=== PATIENT | male | born 1945 | race Caucasian/White ===

== ENCOUNTER 2019-03-31 19:14 | Inpatient (IN) ==
[2019-03-31] MEDS ORDERED: SODIUM CHLORIDE 0.9% 1000ML 1,000 ML IV SCH (19:45)
[2019-03-31 19:49] LABS: Basophils # (auto) 0.02 K/uL (0-0.2); Basophils % (auto) 0.3 %; Eosinophils % (auto) 5.2 %; Hematocrit (blood only) 39.8 % (42-52); Hemoglobin 13.6 g/dL (14.0-18.0); Immature Granulocytes # (auto) 0.01 K/uL (0.00-0.02); Immature Granulocytes % (auto) 0.1 %; Lymphocytes # (auto) 2.51 K/uL (1.2-3.4); Lymphocytes % (auto) 32.6 %; Mean Corpuscular Hemoglobin 30.4 pg (25-34); Mean Corpuscular Hgb Conc 34.2 g/dL (32-36); Mean Platelet Volume 9.9 fL (7.4-10.4); Monocytes # (auto) 0.82 K/uL (0.11-0.59); Monocytes % (auto) 10.6 %; Neutrophils # (auto) 3.95 K/uL (1.4-6.5); Neutrophils % (auto) 51.2 %; Platelet Count 201 K/uL (130-400); RDW Coefficient of Variation 12.7 % (11.5-14.5); RDW Standard Deviation 40.2 fL (36.4-46.3); Red Blood Count 4.47 M/uL (4.7-6.1); White Blood Count 7.71 K/uL (4.8-10.8)
[2019-03-31 20:01] LABS: Partial Thromboplastin Ratio 0.9; Partial Thromboplastin Time 24.7 Seconds (21.0-31.0); Prothrombin Time 10.7 Seconds (9.0-12.0)
--- NOTE | 2019-03-31 20:04 | XRay Report ---
SINGLE VIEW CHEST CLINICAL HISTORY: Generalized weakness. FINDINGS: An AP, portable, upright chest radiograph is correlated with chest CT dated 05/17/2009. The examination is degraded by portable technique and patient rotation. The heart is enlarged. The pulmo nary vasculature is noncongested. No airspace consolidation or large pleural effusion is identified. Scarring/atelectasis are noted at the lung bases. No pneumothorax is seen. The skeletal structures ar e osteopenic. The bony thorax is grossly intact. Degenerative change is noted throughout the thoracic spine. IMPRESSION: Mild cardiac enlargement with no acute cardiopulmonary abnormality. Electronically signed by: Davidson Fuentes M.D. 03/31/2019 8:02 PM
[2019-03-31 20:08] LABS: Alanine Aminotransferase 21 U/L (12-78); Albumin Level 3.3 gm/dl (3.4-5.0); Aspartate Aminotransferase 17 U/L (15-37); BUN Creatinine Ratio 20.5 (10-20); Blood Urea Nitrogen 22 mg/dl (7-18); Calcium 8.8 mg/dl (8.5-10.1); Carbon Dioxide 30 mmol/L (21-32); Chloride 108 mmol/L (98-107); Creatinine Clr Calc Pharmacy 65.9 ml/min; Est GFR (Non-African American) 67.3; Glucose 125 mg/dl (70-99); Magnesium 1.5 mg/dl (1.8-2.4); Potassium 3.7 mmol/L (3.5-5.1); Sodium 145 mmol/L (136-145)
[2019-03-31 20:13] LABS: Albumin Globulin Ratio 0.8 (0.9-2); Alkaline Phosphatase 91 U/L (45-117); Bilirubin,Total 0.3 mg/dl (0.2-1); Total Protein 7.3 gm/dl (6.4-8.2); Troponin I < 0.015 ng/ml (0-0.045)
--- NOTE | 2019-03-31 20:20 | CT Scan Report ---
CT SCAN OF THE BRAIN WITHOUT IV CONTRAST CLINICAL HISTORY: Strokelike symptoms. COMPARISON STUDY: No priors. TECHNIQUE: Unenhanced axial CT scan of the brain is performed from the vertex to the skull base. A do se lowering technique was utilized adhering to the principles of ALARA. CT DOSE: 729.78 mGycm FINDINGS: Brain parenchyma: There are age-related involutional changes noting mild subcortical and periventric ular microangiopathic change. There is no hemorrhage, mass effect, or evidence of acute territorial i schemia by CT criteria. An age indeterminant lacunar infarct is noted in the right caudate head. [place] -white matter differentiation is preserved. No extra-axial fluid collection is seen. Ventricles, sulci, cisterns: Prominent secondary to involutional change. Intracranial vasculature: There is atherosclerotic calcification of the cavernous carotid and vertebr al arteries. Calvarium: Unremarkable. Sinuses and mastoids: A small retention cyst is noted in the right sphenoid sinus. The remaining visu alized paranasal sinuses are clear. The mastoid air cells are well pneumatized. Orbits: The bony orbits are grossly intact. IMPRESSION: There is no hemorrhage, mass effect, or evidence of acute territorial ischemia by CT concepcion jones. Electronically signed by: Davidson Fuentes M.D. 03/31/2019 8:19 PM
[2019-03-31] MEDS: MAGNESIUM SULFATE / D5W 1 GM/100 ML BAG IV SCH ×2 (20:44→21:56)
--- NOTE | 2019-03-31 21:09 | Emergency Department Note ---
Entered by Emilia Herman acting as a scribe for Pancho Wilkerson DO History of Present Illness General Chief complaint: Leg Injury/Pain Stated complaint: R LEG SORE,DRAGGING Source: patient and family Limitations: no limitations History of Present Illness Provider complaint: weakness Onset (ago): hour(s) (6.5) Location: head, foot and right Radiation: non-radiation Severity: moderate Quality: + other (heaviness) Relieved By: + none Exacerbated By: + none Associated symptoms: + weakness and + other (+light headed.); no chest pain, no nausea/vomiting and no shortness of breath Treatments prior to arrival: none The patient is a 74 year old male that presents to the Emergency Department with complaints of that began. Per nursing, the patient began feeling dizzy 6 and a half hours ago. The patient was at a soccer game when his leg began dragging, he states his leg felt heavier than the other. Per the patient, he then started feeling light headed. He denies trouble with his speech or trouble with the other leg. He denies any nausea, vomiting, chest pain, or difficulty breathing. Home Medications Home Medications Medication Instructions Recorded Confirmed Type atorvastatin 20 mg PO DAILY 03/31/19 03/31/19 History bupropion HCl 300 mg PO DAILY 03/31/19 03/31/19 History esomeprazole magnesium [Nexium] 40 mg PO DAILY 03/31/19 03/31/19 History lisinopril 40 mg PO DAILY 03/31/19 03/31/19 History aspirin [Ecotrin Low Strength] 81 mg PO QAM 81 Days #81 tab 04/01/19 Rx Allergies Allergy/AdvReac Type Severity Reaction Status Date / Time No Known Allergies Allergy Unverified 03/31/19 21:08 Past Med/Surg History Medical History No pertinent past medical history No pertinent family history Family History Other No pertinent family history Social History Preferred Language: Yakut Communication Ability: Effective Legal Editor Required: No Beliefs That Will Affect Care: None Current Living Situation: Spouse Other Information That Helps Us Care for You: No Feels Safe at Home: Yes Smoking Status: Unknown if ever smoked Hx Alcohol Use: No Hx Substance Use: No Review of Systems See HPI for pertinent positives & negatives. and A total of 10 systems reviewed and were otherwise negative Physical Exam Vital Signs Vital Signs - 24 hr 03/31/19 19:17 03/31/19 20:25 03/31/19 20:27 Temperature 36.7 C Temperature Source Oral Sepsis Recent Fever Within 48 Hours No Sepsis Action Taken by Nursing No Action Required Pulse Rate 87 76 70 Pulse Rate [Apical] 70 Pulse Rate from SpO2 Sensor 76 Pulse Rhythm Regular Pulse Rhythm [Apical] Regular Pulse Strength [Apical] Normal Respiratory Rate 18 18 18 Respiratory Effort / Characteristics Non-Labored Spontaneous Non-Labored Respiratory Depth Normal Normal Respiratory Pattern Regular Blood Pressure 176/96 H 179/91 H Blood Pressure [Left Arm] 179/91 H Blood Pressure Mean 122 120 Blood Pressure Mean [Left Arm] 120 Blood Pressure Position [Left Arm] Lying Pulse Oximetry 96 94 94 Oxygen Delivery Method Room Air Room Air 03/31/19 20:31 03/31/19 21:01 03/31/19 21:31 Temperature Temperature Source Sepsis Recent Fever Within 48 Hours Sepsis Action Taken by Nursing Pulse Rate 75 73 68 Pulse Rate [Apical] Pulse Rate from SpO2 Sensor 75 74 68 Pulse Rhythm Pulse Rhythm [Apical] Pulse Strength [Apical] Respiratory Rate 18 18 18 Respiratory Effort / Characteristics Respiratory Depth Respiratory Pattern Blood Pressure 169/97 H 164/94 H 168/91 H Blood Pressure [Left Arm] Blood Pressure Mean 121 117 116 Blood Pressure Mean [Left Arm] Blood Pressure Position [Left Arm] Pulse Oximetry 95 97 94 Oxygen Delivery Method 03/31/19 22:01 Temperature Temperature Source Sepsis Recent Fever Within 48 Hours Sepsis Action Taken by Nursing Pulse Rate 74 Pulse Rate [Apical] Pulse Rate from SpO2 Sensor 70 Pulse Rhythm Pulse Rhythm [Apical] Pulse Strength [Apical] Respiratory Rate 18 Respiratory Effort / Characteristics Respiratory Depth Respiratory Pattern Blood Pressure 168/90 H Blood Pressure [Left Arm] Blood Pressure Mean 116 Blood Pressure Mean [Left Arm] Blood Pressure Position [Left Arm] Pulse Oximetry 94 Oxygen Delivery Method GENERAL: Patient is awake, alert, and in no acute distress.Patient is resting comfortably and showing no signs of anxiety EYES: The conjunctivae are clear. The pupils are round and reactive. EARS, NOSE, MOUTH AND THROAT: The nose is without any evidence of any deformity. Mucous membranes are moist.Tongue is midline NECK: The neck is nontender and supple. RESPIRATORY: Normal respiratory effort is noted. There is no evidence of wheezing rhonchi or rales to auscultation. CARDIOVASCULAR: Regular rate and rhythm noted. Systolic murmur suggested. GASTROINTESTINAL: The abdomen is soft. Bowel sounds are present in all quadrants. Abdomen is nontender. MUSCULOSKELETAL/EXTREMITIES: There is no evidence of gross deformity. Full range of motion is noted in the hips and shoulders. SKIN: There is no obvious evidence of any rash. There are no petechiae, pallor or cyanosis noted. NEUROLOGIC: Patient is awake alert and oriented x3. Patellar tendon reflexes were 2+ bilaterally. Gait was unsteady and patient is unable to completely walk with the right leg. He appears to drop the right leg and drag it. He seems to be unsteady and falls of the right. Course 1927: Medical records reviewed. The patient was seen in room A3, a physical examination was performed. 2032: I spoke with the nursing staff and asked them to have the patient walk. 2100: I checked on the patient and spoke with him about having him evaluated further. 2120: I spoke to Dr. Dennis, [facility] Hospitalist, about the patient's case and he agreed to accept for further evaluation. 0: The patient was admitted. Administered Medications Discontinued Medications Aspirin (Ecotrin Ectab) 81 mg PO QAM [facility] Stop: 05/01/19 08:59 Last Admin: 04/01/19 07:53 Dose: 81 mg Documented by: [id number] Atorvastatin Calcium (Lipitor) 20 mg PO DAILY ROBERTO Stop: 05/01/19 08:59 Last Admin: 04/01/19 07:53 Dose: 20 mg Documented by: [id number] Bupropion HCl (Wellbutrin-Xl) 300 mg PO DAILY ROBERTO Stop: 05/01/19 08:59 Last Admin: 04/01/19 07:53 Dose: 300 mg Documented by: [id number] Gadobutrol (Gadavist 65ml) 9 ml IV ONCE PRN PRN Reason: Interaction Checking Stop: 04/05/19 02:15 Last Admin: 04/01/19 02:17 Dose: 9 ml Documented by: [id number] Sodium Chloride (Nss 1000ml) 1,000 mls @ 50 mls/hr IV .Q20H ROBERTO Stop: 04/30/19 19:44 Last Infusion: 04/01/19 00:25 Dose: 0 mls/hr Documented by: [id number] Admin: 03/31/19 20:21 Dose: 50 mls/hr Documented by: [id number] Magnesium Sulfate/Dextrose (Magnesium Sulfate / D5w) 1 gm in 100 mls @ 100 mls/hr IV Q1H ROBERTO Stop: 03/31/19 22:29 Last Infusion: 04/01/19 00:20 Dose: 0 mls/hr Documented by: [id number] Admin: 03/31/19 21:56 Dose: 100 mls/hr Documented by: [id number] Infusion: 03/31/19 21:56 Dose: 0 mls/hr Documented by: [id number] Admin: 03/31/19 20:44 Dose: 100 mls/hr Documented by: [id number] Lisinopril (Zestril) 40 mg PO DAILY ROBERTO Stop: 05/01/19 08:59 Last Admin: 04/01/19 07:53 Dose: 40 mg Documented by: [id number] Medical Decision Making Differential Diagnosis Differential diagnosis: Etiologies such as metabolic, infection, hypo/hyperglycemia, electrolyte abnormalities, cardiac sources, intracerebral event, toxicologic, neurologic, as well as others were entertained. Medical Records Attestation: I reviewed the patient's medical records. Home Medications Current Medication List: was personally reviewed by me Laboratory Data Attestation: I reviewed the patient's lab results. Result diagrams: 04/01/19 05:44 04/01/19 05:44 Lab Results 03/31/19 03/31/19 03/31/19 Range/Units 19:39 19:39 19:39 WBC 7.71 (4.8-10.8) K/uL RBC 4.47 L (4.7-6.1) M/uL Hgb 13.6 L (14.0-18.0) g/dL Hct 39.8 L (42-52) % MCV 89.0 (80-100) fL MCH 30.4 (25-34) pg MCHC 34.2 (32-36) g/dL RDW Std Deviation 40.2 (36.4-46.3) fL RDW Coeff of Angela 12.7 (11.5-14.5) % Plt Count 201 (130-400) K/uL MPV 9.9 (7.4-10.4) fL Immature Gran % (Auto) 0.1 % Neut % (Auto) 51.2 % Lymph % (Auto) 32.6 % [place] % (Auto) 10.6 % Eos % (Auto) 5.2 % Baso % (Auto) 0.3 % Immature Gran # (Auto) 0.01 (0.00-0.02) K/uL Neut # (Auto) 3.95 (1.4-6.5) K/uL Lymph # (Auto) 2.51 (1.2-3.4) K/uL [place] # (Auto) 0.82 H (0.11-0.59) K/uL Eos # (Auto) 0.40 (0-0.5) K/uL Baso # (Auto) 0.02 (0-0.2) K/uL PT 10.7 (9.0-12.0) Seconds INR 1.0 (0.9-1.1) APTT 24.7 (21.0-31.0) Seconds PTT Ratio 0.9 Sodium 145 (136-145) mmol/L Potassium 3.7 (3.5-5.1) mmol/L Chloride 108 H (98-107) mmol/L Carbon Dioxide 30 (21-32) mmol/L Anion Gap 7.0 (3-11) BUN 22 H (7-18) mg/dl Creatinine 1.08 (0.6-1.4) mg/dl Est Cr Clr Drug Dosing 65.9 ml/min Est GFR ( Amer) 78.0 Est GFR (Non-Af Amer) 67.3 BUN/Creatinine Ratio 20.5 H (10-20) Glucose 125 H (70-99) mg/dl Calcium 8.8 (8.5-10.1) mg/dl Magnesium 1.5 L (1.8-2.4) mg/dl Total Bilirubin 0.3 (0.2-1) mg/dl AST 17 (15-37) U/L ALT 21 (12-78) U/L Alkaline Phosphatase 91 (45-117) U/L Troponin I < 0.015 (0-0.045) ng/ml Total Protein 7.3 (6.4-8.2) gm/dl Albumin 3.3 L (3.4-5.0) gm/dl Globulin 4.0 (2.5-4.0) gm/dl Albumin/Globulin Ratio 0.8 L (0.9-2) Imaging Data Radiologist's Impression: Radiology results as stated below per my review and the radiologist's interpretation: CT SCAN OF THE BRAIN WITHOUT IV CONTRAST CLINICAL HISTORY: Strokelike symptoms. COMPARISON STUDY: No priors. TECHNIQUE: Unenhanced axial CT scan of the brain is performed from the vertex to the skull base. A dose lowering technique was utilized adhering to the principles of ALARA. CT DOSE: 729.78 mGycm FINDINGS: Brain parenchyma: There are age-related involutional changes noting mild subc ortical and periventricular microangiopathic change. There is no hemorrhage, mass effect, or evidence of acute territorial ischemia by CT criteria. An age indeterminant lacunar infarct is noted in the right caudate head. [place]-white matter differentiation is preserved. No extra-axial fluid collection is seen. Ventricles, sulci, cisterns: Prominent secondary to involutional change. Intracranial vasculature: There is atherosclerotic calcification of the cavernous carotid and vertebral arteries. Calvarium: Unremarkable. Sinuses and mastoids: A small retention cyst is noted in the right sphenoid sinus. The remaining visualized paranasal sinuses are clear. The mastoid air cells are well pneumatized. Orbits: The bony orbits are grossly intact. IMPRESSION: There is no hemorrhage, mass effect, or evidence of acute territorial ischemia by CT criteria. Electronically signed by: Davidson Fuentes M.D. 03/31/2019 8:19 PM SINGLE VIEW CHEST CLINICAL HISTORY: Generalized weakness. FINDINGS: An AP, portable, upright chest radiograph is correlated with chest CT dated 05/17/2009. The examination is degraded by portable technique and patient rotation. The heart is enlarged. The pulmonary vasculature is noncongested. No airspace consolidation or large pleural effusion is identified. Scarring/atelectasis are noted at the lung bases. No pneumothorax is seen. The skeletal structures are osteopenic. The bony thorax is grossly intact. Degenerative change is noted throughout the thoracic spine. IMPRESSION: Mild cardiac enlargement with no acute cardiopulmonary abnormality. Electronically signed by: Davidson Fuentes M.D. 03/31/2019 8:02 PM ECG Data Attestation: I personally reviewed and interpreted this ECG as follows: Indication: weakness and other Rate (beats per minute): 142 Rhythm: sinus tachycardia Findings: + other (no acute ST segments); no ectopy Comparison ECG Date: from (01/05/15) Change: no significant change Blood Pressure Blood Pressure Findings: Elevated blood pressure Blood Pressure Disposition: further management by hospitalist PRIMITIVO Sanchez The patient is a 74-year-old male who presented to the emergency department for an evaluation of weakness in his right leg. The patient did not have any specific focal neurologic deficit when he tried to walk he would have falling to the right as well as some degree of dragging of his right leg. I discussed patient's laboratory and radiographic studies with him. Given his findings I also discussed his case with the on-call [facility] hospitalist. They have agreed to evaluate the patient in the emergency department for further ma nagement disposition. The patient has no other reason for this finding on physical exam. He was not made a stroke alert because the onset of symptoms making the patient outside of the window for TPA. Impression & Plan Weakness of right lower extremity, Acute focal neurological deficit Discharge Plan Visit Data *Final* Discharge Date/Time: 04/01/19 00:10 Chief Complaint: Leg Injury/Pain Stated Complaint: R LEG SORE,DRAGGING ED Provider: Pancho Wilkerson Discharge Problem: Weakness of right lower extremity, Acute focal neurological deficit Patient Disposition: Admitted As Inpatient Discharge Instructions Interventions: ED Discharge Assessment Last Done: 04/01/19 00:10 The rose's documentation has been prepared under my direction and personally reviewed by me in its entirety. I confirm that the note above accurately reflects all work, treatment, procedures, and medical decision making performed by me.
[2019-04-01] MEDS ORDERED: NITROGLYCERIN SL 0.4 MG/TAB TAB SL PRN (00:37)
[2019-04-01] MEDS ORDERED: PHARMACIST DISCHARGE MED REC CONSULT PRN (00:37)
[2019-04-01] MEDS ORDERED: POLYETHYLENE (MIRALAX) 17 GM PACK PO PRN (00:37)
[2019-04-01] MEDS ORDERED: ONDANSETRON INJ 2 MG/ML 2 ML VIAL IV PRN (00:37)
[2019-04-01] MEDS ORDERED: ACETAMINOPHEN 325 MG TAB PO PRN (00:37)
--- NOTE | 2019-04-01 00:41 | History and Physical Report ---
DATE OF ADMISSION: 03/31/2019 CHIEF COMPLAINT: Dragging his right leg. HISTORY OF PRESENT ILLNESS: This is a 74-year-old male with past medical history significant for hyperlipidemia, history of gout, hypertension, GERD, Da Silva's esophagus, depression, presents with some difficulty ambulation since 1:00 p.m. today. He was at soccer match when he noticed that he had some difficulty ambulation. The patient dragged his right leg. He came home with and it was still continuing. He can move his legs. There is no lack of sensation, but when he is walking, he has to drag his right leg that is the reason he came to the ER. His initial CAT scan was unremarkable. Currently, resting comfortable and hemodynamically stable. Denies any headaches, no blurred vision, no difficulty swallowing. Speech is clear. No sore throat, no cough, no fever, no chills, no shortness of breath, no chest pain, no nausea, no vomiting, no abdominal pain. Normal bowel and bladder movements. No hematuria, no dysuria, no black stools or hematochezia. ALLERGIES: No known drug allergies. PAST MEDICAL HISTORY: As mentioned above. PAST SURGICAL HISTORY: Colonoscopy, EGDs, larynx surgery. MEDICATIONS: The patient is on atorvastatin 20 mg p.o. daily, bupropion 300 mg p.o. daily, Nexium 40 mg p.o. daily, lisinopril 40 mg p.o. daily. FAMILY HISTORY: Significant for, mother had cervical cancer. Brother had depression. Brother had cardiac stents. Sister has Da Silva's esophagus. Father has aortic aneurysm. SOCIAL HISTORY: , lives with his . Former smoker, quit in 1970. Smoked 1 pack a day for 5 years. Alcohol, occasional. No drug use. REVIEW OF SYMPTOMS: As per HPI. Rest of review of systems negative. PHYSICAL EXAMINATION: GENERAL: The patient is of moderate build, not in acute distress. VITAL SIGNS: Temperature 36.7, pulse 74, respiratory rate 18, blood pressure 168/90, oxygen 94% room air. HEENT: No pallor, no icterus. Pupils equal, round, reactive to light. NECK: No JVD, no neck masses, no carotid bruits. CARDIOVASCULAR: S1, S2 heard, regular rate and rhythm. Some mild murmur heard in mitral area. ABDOMEN: Soft, bowel sounds present, nontender. No distention. CENTRAL NERVOUS SYSTEM: Cranial nerves II-XII grossly intact. Power 5/5 in all extremities. Sensation is intact. Position sense intact. Coordination of movement normal. Oubarh-sr-uzim test normal. No pronator drift. Iobe-bx-sptb test normal. Babinski negative. Gait is somewhat slow and questionable, mild dragging of the right leg. EXTREMITIES: No edema, no erythema. LABORATORY DATA: WBC 7.7, hemoglobin 13.6, hematocrit 39.8, platelets 201. PT 10.7, INR 1, APTT 24.7. Sodium 145, potassium 3.7, chloride 108, bicarbonate 30, BUN 22, creatinine 1.08, serum glucose 125, calcium 8.8, magnesium 1.5, total bilirubin 0.3, AST 17, ALT 21, alkaline phosphatase 19, troponin I less than 0.015. CT of the head: There is no hemorrhage, mass effect, or evidence of acute territorial ischemia by CT criteria. Chest x-ray: Mild cardiac enlargement with no acute cardiopulmonary abnormalities. EKG: Normal sinus rhythm, rate of 81, no significant change found. ASSESSMENT AND PLAN: This is a 74-year-old male who presents with questionable dragging of right leg and ambulatory dysfunction. 1. Questionable stroke-like symptoms with dragging of the right leg. On exam, power 5/5 in all extremities. Sensation is intact and patient is able to ambulate. Questionable slight dragging of the right leg. He says it is getting somewhat better. Magnesium is 1.5. Could be from electrolyte abnormality. Initial CAT scan was negative. We will do full stroke workup with MRI of the head, MRA of the head and neck, carotid Doppler, echocardiogram. Monitor on tele floor. PT and OT. Neurology consult. 2. History of hypertension. Continue his home medication of lisinopril. We will monitor the blood pressure. Currently, blood pressures are running somewhat on the higher side. We will allow permissive hypertension. 3. Gastroesophageal reflux disease. Continue Nexium. 4. Depression. Continue bupropion. 5. Hyperlipidemia. On statin. Follow lipid profile. 5. Deep vein thrombosis prophylaxis, sequential compression devices for now. DISPOSITION: Closely monitor in tele floor. Level 1 full code. MTDD
[2019-04-01] MEDS ORDERED: GADOBUTROL 65ML VIAL IV PRN (02:16)
[2019-04-01 06:03] LABS: Basophils # (auto) 0.02 K/uL (0-0.2); Basophils % (auto) 0.2 %; Eosinophils # (auto) 0.44 K/uL (0-0.5); Eosinophils % (auto) 5.2 %; Hematocrit (blood only) 37.7 % (42-52); Hemoglobin 12.7 g/dL (14.0-18.0); Immature Granulocytes # (auto) 0.02 K/uL (0.00-0.02); Immature Granulocytes % (auto) 0.2 %; Lymphocytes # (auto) 2.37 K/uL (1.2-3.4); Lymphocytes % (auto) 27.8 %; Mean Corpuscular Hemoglobin 29.8 pg (25-34); Mean Corpuscular Hgb Conc 33.7 g/dL (32-36); Mean Corpuscular Volume 88.5 fL (80-100); Mean Platelet Volume 9.8 fL (7.4-10.4); Monocytes # (auto) 0.79 K/uL (0.11-0.59); Monocytes % (auto) 9.3 %; Neutrophils # (auto) 4.89 K/uL (1.4-6.5); Neutrophils % (auto) 57.3 %; Platelet Count 185 K/uL (130-400); RDW Coefficient of Variation 12.8 % (11.5-14.5); RDW Standard Deviation 41.1 fL (36.4-46.3); Red Blood Count 4.26 M/uL (4.7-6.1); White Blood Count 8.53 K/uL (4.8-10.8)
[2019-04-01 06:24] LABS: Estimated Average Glucose 117 mg/dl; Hemoglobin A1C 5.7 % (4.5-5.6)
[2019-04-01 06:44] LABS: BUN Creatinine Ratio 19.7 (10-20); Calcium 8.7 mg/dl (8.5-10.1); Creatinine Clr Calc Pharmacy 74.1 ml/min; Est GFR (African American) 89.9; Est GFR (Non-African American) 77.6; Magnesium 1.9 mg/dl (1.8-2.4); Potassium 4.1 mmol/L (3.5-5.1)
--- NOTE | 2019-04-01 06:53 | Magnetic Resonance Report ---
MR angio neck wo/w con HISTORY: Mental status change. Stroke. cva TECHNIQUE: Multiaxial CT angiography of the neck was performed IV contrast: 9 cc Gadavist All measur ements were calculated based on NASCET criteria. Maximum intensity projection images were also [place]. A dose lowering technique was utilized adhering to the principles of ALARA. COMPARISON STUDY: None. FINDINGS: The aortic arch and proximal great vessels are widely patent. There is no significant sten osis, occlusion, or dissection identified within the bilateral common carotid, internal carotid, or v ertebral arteries. Minimal scattered plaque formation bilaterally IMPRESSION: No significant stenosis, occlusion, or dissection identified within the carotid or vertebral arteries . Minimal scattered plaque formation The above report was generated using voice recognition software. It may contain grammatical, syntax or spelling errors. Electronically signed by: Tyrell Chawla M.D. 04/01/2019 6:52 AM
--- NOTE | 2019-04-01 06:56 | Magnetic Resonance Report ---
MR brain wo/w con CLINICAL HISTORY: cva? Mental status change COMPARISON STUDY: No previous studies for comparison. TECHNIQUE: Utilizing a 1.5 [place] magnet and dedicated coil, multiplanar, multiecho imaging of the br ain was performed pre and postcontrast administration. IV administration of 9 mL of Gadavist contras t was uneventful. FINDINGS: Signal characteristics of the cerebellar as well as cerebral hemispheres are consistent wit h a component of chronic small vessel change. Moderate foci of increased signal of the periventricula r and deep white matter regions are present. Mild age-related atrophy. The ventricular system is midline. The internal auditory canals are unremarkable. Sella and parasellar regions are unremarkable. No abnormal postcontrast enhancement. IMPRESSION: 1. Age-related chronic small vessel change and atrophy. 2. No acute intracranial abnormality. The above report was generated using voice recognition software. It may contain grammatical, syntax or spelling errors. Electronically signed by: Tyrell Chawla M.D. 04/01/2019 6:55 AM
--- NOTE | 2019-04-01 06:59 | Magnetic Resonance Report ---
MR ANGIOGRAPHY OF THE [place] NO CONTRAST CLINICAL HISTORY: Acute strokelike symptoms COMPARISON STUDY: None. A 3-D [id number] MR angiographic sequence of the [place] was performed. Both the source and projection images were reviewed. There is no evidence of major intracranial branch occlusion. There are no lesions suspicious for aneu rysm. There is a origin of the left posterior cerebral artery. There are mild to moderate multi focal stenoses of the left posterior cerebral artery. 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 04/01/2019 6:57 AM
[2019-04-01] MEDS ORDERED: ASPIRIN 81 MG ECTAB PO SCH (09:00)
[2019-04-01] MEDS ORDERED: BuPROPion XL 300 MG TABCR PO SCH (09:00)
[2019-04-01] MEDS ORDERED: ATORVASTATIN 20 MG TAB PO SCH (09:00)
[2019-04-01] MEDS ORDERED: LISINOPRIL 40 MG TAB PO SCH (09:00)
--- NOTE | 2019-04-01 18:15 | Discharge Summary ---
Date of Service April 01, 2019 Admission HPI Per Admitting Provider DICTATED BY: Phillip Dennis MD DATE OF ADMISSION: 03/31/2019 CHIEF COMPLAINT: Dragging his right leg. HISTORY OF PRESENT ILLNESS: This is a 74-year-old male with past medical history significant for hyperlipidemia, history of gout, hypertension, GERD, Da Silva's esophagus, depression, presents with some difficulty ambulation since 1:00 p.m. today. He was at soccer match when he noticed that he had some difficulty ambulation. The patient dragged his right leg. He came home with and it was still continuing. He can move his legs. There is no lack of sensation, but when he is walking, he has to drag his right leg that is the reason he came to the ER. His initial CAT scan was unremarkable. Currently, resting comfortable and hemodynamically stable. Denies any headaches, no blurred vision, no difficulty swallowing. Speech is clear. No sore throat, no cough, no fever, no chills, no shortness of breath, no chest pain, no nausea, no vomiting, no abdominal pain. Normal bowel and bladder movements. No hematuria, no dysuria, no black stools or hematochezia. Principal Diagnosis RIGHT LEG WEAKNESS /LOW MAGNESIUM -SYMPTOM RESOLVED NO EVIDENCE OF STROKE Discharge Exam GENERAL: No sign of distress, HEENT: Sclera nonicteric, pink-purple bilateral equal reactive to light extraocular muscle intact Normal oral mucosa, neck: No JVD, no thyromegaly, trachea midline Lungs: Clear to auscultate, no wheeze or rales Cardiovascular: Regular S1 and S2, no murmur or gallop, no JVD, no lower extr emity edema Abdomen: Soft, nontender, bowel sounds active, no hepatosplenomegaly Extremities: No rash or deformity, normal joint, Neuro: No focal neurological deficit, no dysarthria, no facial droop Psych: Alert awake oriented x3: Euthymic Skin: No rash LYMPH NODES: No cervical lymphadenopathy Discharge Data Allergies Allergy/AdvReac Type Severity Reaction Status Date / Time No Known Allergies Allergy Unverified 03/31/19 21:08 Consultations 03/31/19 21:13 ED Decision to Admit Stat 04/01/19 00:37 Consult Case Management - Discharge Planning Routine Consult Neurology Routine Ordered Studies 03/31/19 19:34 CT head/brain wo con Stat 04/01/19 00:37 MR angio head wo con Urgent MR angio neck wo/w con Routine MR brain wo/w con Urgent Hospital Course (1) Weakness of right lower extremity: Presented with transient right lower extremity weakness, symptom has completely resolved Patient reports, he was standing on the gallery to watch soccer game [place] his right foot became numb When he was climbing up the steps in the gallery, but he was dragging his right foot, bumping at the stair steps Not lose balance, did not sustain any fall Did not had any weakness or paresthesia of her right upper arm, no dizzy spell lightheadedness no headache no slurred speech of facial droop Patient arrived to the ER, detail neuroimaging including CT head, MRI of brain negative for any acute change Lab work was unremarkable except for hypomagnesemia Was corrected in the ER Patient reports his weakness, numbness on right foot completely resolved in the ER this morning he walked around the hallway approximately 3 times, does not have any balance issue, appreciate input from physical therapy no loss of merlin nce no weakness noted on the right foot no paresthesia Patient's presentation is very unlikely for any neurological event: Stroke or TIA Possible transient peripheral neuropathic symptoms secondary to electrolyte deficiency symptom resolved after correction of electrolytes To be discharged home today Patient is asked to increase fluid intake add fresh fruits and vegetables in his diet Asked to start taking low-dose aspirin 81 mg daily for primary prevention of stroke (2) Magnesium deficiency: No report of her diarrhea nausea vomiting Patient does report he walks a couple of miles every day, has almost 12,000 steps a day Patient is asked to have sports drink to replace the electrolyte deficiency which can come up with strenuous activity Mag was 1.5, with associated numbness on the right foot, Was given IV mag supplement, repeat mag level improved to 1.9 with normal kidney function stable potassium sodium No further intervention or testing needed, stable to be discharged home To follow-up with his family physician in 1 week Disposition: Patient is discharged home in stable condition with resolution of his presenting symptoms Total Time Total Time Spent Total Time Spent (In Minutes): Approximately 40 minutes Total Time Includes: Examination of the Patient, Discharge Planning and Medication Reconciliation Discharge Plan Discharge Items Patient Disposition: Home - Self-Care Reason For Visit: RIGHT LEG DRAGGING ON AMBULATION Discharge Diagnosis: RIGHT LEG WEAKNESS /LOW MAGNESIUM -SYMPTOM RESOLVED NO EVIDENCE OF STROKE Discharge Goals: Decrease discomfort and Diagnostic testing Activity: Resume your previous activity Non-emergency contact: Primary Care Provider Call non-emergency contact if: you have any medication questions Follow-up/Referrals: Santhosh Ray MD [Primary Care Provider] - 04/08/19 10:45 am Diet: Heart Healthy Add Provider Instructions: PLEASE DRINK PLENTY FOR FLUID , FRESH VEGETABLES AND FRUITS START TAKING ASPIRIN 81 MG DAILY ( WITH MEAL ) HOSPITAL FOLLOW UP WITH DR RAY ON 04/08/19 @ 10 : 45 AM Prescriptions: New aspirin [Ecotrin Low Strength] 81 mg Tablet,Delayed Release (Dr/Ec) 81 mg PO QAM 81 Days Qty: 81 RF: 3 Continued atorvastatin 20 mg tablet 20 mg PO DAILY RF: 0 lisinopril 40 mg tablet 40 mg PO DAILY RF: 0 bupropion HCl 300 mg tablet extended release 24 hr 300 mg PO DAILY RF: 0 esomeprazole magnesium [Nexium] 40 mg Capsule,Delayed Release(Dr/Ec) 40 mg PO DAILY RF: 0 Stand-Alone Forms: [facility] Discharge Orders: Discharge Order (Routine); Ordered 04/01/19 Ordered By: Juana Cooper Admission Data Admit Date/Time: 03/31/19 22:25 Attending Provider: Juana Cooper Admit Provider: Phillip Dennis Primary Care Provider: Santhosh Ray Other Providers: Phillip Dennis ; Lola Valerio Service: Telemetry Other Interventions: Discharge Summary Assessment (RN) Last Done: 04/01/19 14:21 DC Date/Time DO NOT enter until pt leaves facility: 04/01/19 15:20
== END 2019-04-01 15:20 | disposition home or self-care (01) | DRG 641 ==
LOC: ED 19:14 → 2S 22:25